=== PATIENT | male | born 1960 | race Caucasian/White ===

== ENCOUNTER 2021-04-24 13:26 | Emergency (ER) | payer OTHER, BC ==
[~2021-04-24] VITALS: Ht 177.8 cm; Wt 93.9 kg
[~2021-04-24 13:26] MED LIST: EZET1TAB31 PO; METF-440 PO; PIOG30TA10 PO
[2021-04-24] MEDS ORDERED: KETOROLAC TROMETHAMINE 15 MG INJ ONE (13:53)
[2021-04-24] MEDS ORDERED: HYDR-3974 PO (13:56)
[2021-04-24] MEDS ORDERED: CYCL5TAB PO (13:56)
[2021-04-24] MEDS ORDERED: IBUP-1955 PO (13:56)
--- NOTE | 2021-04-24 14:07 | NUR ---
Patient discharged to home in stable condition. Written and verbal after care instructions given. Patient verbalizes understanding of instructions. Stressed follow up or return to ER for worsening s/s.
[2021-04-24] MEDS ORDERED: KETOROLAC TROMETHAMINE 15 MG INJ IM ONE (14:15)
== END 2021-04-24 14:09 | disposition home or self-care (01) ==
LOC: ER 13:26
DX: S39.012A Strain of muscle, fascia and tendon of lower back, initial encounter (principal); X50.0XXA Overexertion from strenuous movement or load, initial encounter; Y92.89 Other specified places as the place of occurrence of the external cause; E78.5 Hyperlipidemia, unspecified; E11.9 Type 2 diabetes mellitus without complications; Z79.84 Long term (current) use of oral hypoglycemic drugs
CPT/HCPCS: 96372; 99283; J1885; A4663

== ENCOUNTER 2023-12-30 11:11 | Emergency (ER) | payer OTHER ==
[~2023-12-30] VITALS: Ht 177.8 cm; Wt 91.6 kg
[~2023-12-30 11:11] MED LIST changes: +CYCL5TAB PO; +HYDR-3974 PO; +IBUP-1955 PO
[2023-12-30] MEDS ORDERED: FLAS1EAC2 TP (11:57)
[2023-12-30] MEDS ORDERED: ACET1TAB23 PO (11:57)
[2023-12-30] MEDS ORDERED: FLAS1KIT2 TP (11:57)
[2023-12-30 12:40] VITALS: BP 120/80; O2SAT 97
== END 2023-12-30 12:40 | disposition home or self-care (01) ==
LOC: ER 11:11
DX: M94.0 Chondrocostal junction syndrome [Tietze] (principal); E11.9 Type 2 diabetes mellitus without complications; E78.5 Hyperlipidemia, unspecified; Z79.1 Long term (current) use of non-steroidal anti-inflammatories (NSAID); Z79.891 Long term (current) use of opiate analgesic; Z79.4 Long term (current) use of insulin; Z79.899 Other long term (current) drug therapy
CPT/HCPCS: 71045; 93005; A4606; A4663